=== PATIENT | male | born 1970 | race Caucasian/White ===

== ENCOUNTER 2022-05-15 18:22 | Emergency (ER) | payer MEDICAID ==
[~2022-05-15] VITALS: Ht 167.6 cm; Wt 78.5 kg
[2022-05-15 18:34] VITALS: BP 118/70
--- NOTE | 2022-05-15 18:39 | NUR ---
51/M C/O RECTAL PAIN X 4 DAYS. DENIES BLOOD IN STOOL. REPORTS NORMAL BM TODAY. DENIES DIARRHEA. DENIES ABD PAIN. PMH: DENIES
--- NOTE | 2022-05-15 19:28 | NUR ---
Patient resting in bed, A/Ox4, chest and fall symmetrical, no s/s of distress, patient on monitor.
[2022-05-15] MEDS ORDERED: CEPH-588 PO (20:06)
[2022-05-15] MEDS ORDERED: HYDR-2734 TP (20:06)
[2022-05-15] MEDS ORDERED: IBUP-2213 PO (20:06)
[2022-05-15 20:15] VITALS: BP 118/70
--- NOTE | 2022-05-15 20:15 | NUR ---
Patient discharged with v/s stable. Written and verbal after care instructions given and explained. Patient alert, oriented and verbalized understanding of instructions. Ambulatory with steady gait. All questions addressed prior to discharge. ID band removed. Patient advised to follow up with PMD. Rx of KEFLEX, MOTRIN, HYDROCORTISONE given. Patient educated on indication of medication including possible reaction and side effects. Opportunity to ask questions provided and answered.
== END 2022-05-15 20:15 | disposition home or self-care (01) ==
LOC: MED 18:22
DX: K61.1 Rectal abscess (principal)
CPT/HCPCS: 99283